=== PATIENT | female | born 1995 | race Caucasian/White ===

== ENCOUNTER 2018-10-24 07:58 | Emergency (ER) | payer OTHER ==
[~2018-10-24] VITALS: Ht 167.6 cm; Wt 50.3 kg
[2018-10-24 09:04] LABS: BILIRUBIN,URINE NEGATIVE (NEGATIVE); CLARITY,URINE CLEAR; COLOR,URINE YELLOW; GLUCOSE, URINE (UA) NEGATIVE (NEGATIVE); KETONES,URINE NEGATIVE (NEGATIVE); LEUKOCYTE ESTERASE ,URINE 1+ (NEGATIVE); NITRITE,URINE NEGATIVE (NEGATIVE); PH,URINE 7 (5-9); PROTEIN,URINE 2+ (NEGATIVE); UROBILINOGEN,URINE 4 MG/DL (NORMAL)
[2018-10-24 09:12] LABS: BACTERIA,URINE FEW /HPF
[2018-10-24 09:23] LABS: BASOPHILS % (AUTO) 0 % (0-10); EOSINOPHILS # (AUTO) 0.3 10^3/uL (0.0-0.3); EOSINOPHILS % (AUTO) 3 % (0-10); HEMATOCRIT 38 % (35-52); LYMPHOCYTES # (AUTO) 3.2 X 10^3 (1.0-4.0); LYMPHOCYTES % (AUTO) 32 % (12-44); MEAN CORPUSCULAR HEMOGLOBIN 30 PG (25-34); MEAN CORPUSCULAR HGB CONC 34 G/DL (32-36); MEAN CORPUSCULAR VOLUME 89 FL (80-99); MEAN PLATELET VOLUME 10.5 FL (7.4-10.4); MONOCYTES % (AUTO) 10 % (0-12); NEUTROPHILS # (AUTO) 5.6 X 10^3 (1.8-7.8); NEUTROPHILS % (AUTO) 55 % (42-75); PLATELET COUNT 245 10^3/uL (130-400); WHITE BLOOD COUNT 10.1 10^3/uL (4.3-11.0)
[2018-10-24] MEDS ORDERED: LIDOCAINE 2% VISCOUS 15 ML UDC PO ONE (09:30)
[2018-10-24] MEDS ORDERED: ANTACID SUSP 30 ML UDC (MYLANTA) PO ONE (09:30)
[2018-10-24] MEDS ORDERED: ONDANSETRON 4 MG/2 ML (SDV) Z0FRAN IVP ONE (09:30)
[2018-10-24] MEDS ORDERED: FAMOTIDINE 20MG/2ML IV (PEPCID) IVP ONE (09:30)
[2018-10-24 09:38] LABS: ALANINE AMINOTRANSFERASE 16 U/L (0-55); ALBUMIN 4.4 GM/DL (3.2-4.5); ALKALINE PHOSPHATASE 67 U/L (40-136); BILIRUBIN,TOTAL 0.4 MG/DL (0.1-1.0); BUN/CREATININE RATIO 11; CARBON DIOXIDE 25 MMOL/L (21-32); CHLORIDE 107 MMOL/L (98-107); CREATININE SERUM 0.76 MG/DL (0.60-1.30); GFR ESTIMATED > 60; GLUCOSE 91 MG/DL (70-105); LIPASE 75 U/L (8-78); POTASSIUM 3.6 MMOL/L (3.6-5.0); SODIUM 140 MMOL/L (135-145); TOTAL PROTEIN 7.2 GM/DL (6.4-8.2)
--- NOTE | 2018-10-24 10:19 | NUR ---
Dr. Jacobs notified that pt is still in pain at this time.
--- NOTE | 2018-10-24 10:19 | NUR ---
Pt reports nausea has resolved, however pain is still rated at 8/10.
--- NOTE | 2018-10-24 10:52 | ED Abdominal Pain ---
General Chief Complaint: Abdominal/GI Problems Stated Complaint: ABD PAIN Nursing Triage Note: Pt c/o abdominal pain/cramping, nausea, lightheadedness that began yesterday. Pt reports fever but didn't take temperature. Pt guarding and tearful during assessment. Sepsis Screen: No Definite Risk Source of Information: Patient Exam Limitations: No Limitations History of Present Illness Date Seen by Provider: Oct 24, 2018 Time Seen by Provider: 08:33 Initial Comments This 22-year-old young lady presents to the emergency room with complaints of extreme upper abdominal pain since yesterday. She has associated nausea without vomiting. She has lost her appetite. She denies any constipation or diarrhea. She has had hot flashes but is afebrile. She denies any urine or vaginal symptoms. She is currently on her menstrual period. She took ibuprofen yesterday. She sees [facility] for her primary care. Allergies and Home Medications Allergies Uncoded Allergies: ARTIFICIAL GRAPE FLAVOR (Allergy, Unknown, 10/24/18) Home Medications Hydrocodone Bit/Acetaminophen 1 Tab Tab, 1 EACH PO Q4-6HR PRN for PAIN-MODERATE Prescribed by: CHRISTEL JIMENEZ on 10/24/18 1120 Omeprazole 20 Mg Capsule.dr, 20 MG PO BID Prescribed by: CHRISTEL JIMENEZ on 10/24/18 1120 Ondansetron 4 Mg Tab.rapdis, 4 MG PO Q4H PRN for NAUSEA/VOMITING Prescribed by: CHRISTEL JIMENEZ on 10/24/18 1120 Patient Home Medication List Home Medication List Reviewed: Yes Review of Systems Review of Systems Constitutional: no symptoms reported EENTM: No Symptoms Reported Respiratory: No Symptoms Reported Cardiovascular: No Symptoms Reported Gastrointestinal: See HPI Genitourinary: No Symptoms Reported Musculoskeletal: no symptoms reported Skin: no symptoms reported Psychiatric/Neurological: No Symptoms Reported Endocrine: No Symptoms Reported Hematologic/Lymphatic: No Symptoms Reported Past Isfwbil-Iprnir-Krpivy Hx Past Med/Social Hx: Reviewed and Corrections made Patient Social History Alcohol Use: Occasionally Uses Recreational Drug Use: Yes (marijuana) Smoking Status: Current Everyday Smoker Type Used: Electronic/Vapor 2nd Hand Smoke Exposure: Yes Recent Foreign Travel: No Contact w/Someone Who Travel: No Recent Infectious Disease Expo: No Recent Hopitalizations: No Seasonal Allergies Seasonal Allergies: No Past Medical History Surgeries: No Respiratory: No Cardiac: No Neurological: No : No Last Menstrual Period: Oct 23, 2018 Genitourinary: No Gastrointestinal: No Musculoskeletal: Yes (bilat wrist fractures) Fractures HEENT: No Cancer: No Psychosocial: Yes Anxiety, Suicide Attempts, Depression Integumentary: No Blood Disorders: No Physical Exam Vital Signs Vital Signs - First Documented 10/24/18 08:11 Temp 97.0 Pulse 83 Resp 18 B/P (MAP) 117/84 (95) Pulse Ox 97 O2 Delivery Room Air Capillary Refill : Less Than 3 Seconds Height/Weight/BMI Height: 5'6.00" Weight: 111lbs. oz. [id number]; BMI Method:Stated General Appearance: WD/WN, mild distress (tearful) HEENT: PERRL/EOMI, normal ENT inspection, pharynx normal Neck: normal inspection Respiratory: lungs clear, normal breath sounds, no respiratory distress, no accessory muscle use Cardiovascular: regular rate, rhythm, no edema, no murmur Gastrointestinal: normal bowel sounds, soft, tenderness (across the upper abdomen and most intense in the epigastrium inferior to the xiphoid) Extremities: normal inspection, no pedal edema Neurologic/Psychiatric: maltster II-XII nml as tested, no motor/sensory deficits, alert, normal mood/affect, oriented x 3 Skin: normal color, warm/dry Progress/Results/Core Measures Results/Orders Lab Results Laboratory Tests Test 10/24/18 08:13 10/24/18 08:25 Range/Units Urine Color YELLOW Urine Clarity CLEAR Urine pH 7 5-9 Urine Specific [place] 1.010 L 1.016-1.022 Urine Protein 2+ H NEGATIVE Urine Glucose (UA) NEGATIVE NEGATIVE Urine Ketones NEGATIVE NEGATIVE Urine Nitrite NEGATIVE NEGATIVE Urine Bilirubin NEGATIVE NEGATIVE Urine Urobilinogen 4 H NORMAL MG/DL Urine Leukocyte Esterase 1+ H NEGATIVE Urine RBC (Auto) 5+ H NEGATIVE Urine RBC 2-5 H /HPF Urine WBC 2-5 /HPF Urine Squamous Epithelial Cells 5-10 /HPF Urine Crystals NONE /LPF Urine Bacteria FEW H /HPF Urine Casts NONE /LPF Urine Mucus NEGATIVE /LPF Urine Culture Indicated NO White Blood Count 10.1 4.3-11.0 10^3/uL Red Blood Count 4.29 L 4.35-5.85 10^6/uL Hemoglobin 13.0 11.5-16.0 G/DL Hematocrit 38 35-52 % Mean Corpuscular Volume 89 80-99 FL Mean Corpuscular Hemoglobin 30 25-34 PG Mean Corpuscular Hemoglobin Concent 34 32-36 G/DL Red Cell Distribution Width 13.0 10.0-14.5 % Platelet Count 245 130-400 10^3/uL Mean Platelet Volume 10.5 H 7.4-10.4 FL Neutrophils (%) (Auto) 55 42-75 % Lymphocytes (%) (Auto) 32 12-44 % Monocytes (%) (Auto) 10 0-12 % Eosinophils (%) (Auto) 3 0-10 % Basophils (%) (Auto) 0 0-10 % Neutrophils # (Auto) 5.6 1.8-7.8 X 10^3 Lymphocytes # (Auto) 3.2 1.0-4.0 X 10^3 Monocytes # (Auto) 1.0 0.0-1.0 X 10^3 Eosinophils # (Auto) 0.3 0.0-0.3 10^3/uL Basophils # (Auto) 0.0 0.0-0.1 10^3/uL Sodium Level 140 135-145 MMOL/L Potassium Level 3.6 3.6-5.0 MMOL/L Chloride Level 107 98-107 MMOL/L Carbon Dioxide Level 25 21-32 MMOL/L Anion Gap 8 5-14 MMOL/L Blood Urea Nitrogen 8 7-18 MG/DL Creatinine 0.76 0.60-1.30 MG/DL Estimat Glomerular Filtration Rate > 60 BUN/Creatinine Ratio 11 Glucose Level 91 70-105 MG/DL Calcium Level 9.0 8.5-10.1 MG/DL Corrected Calcium 8.7 8.5-10.1 MG/DL Total Bilirubin 0.4 0.1-1.0 MG/DL Aspartate Amino Transf (AST/SGOT) 18 5-34 U/L Alanine Aminotransferase (ALT/SGPT) 16 0-55 U/L Alkaline Phosphatase 67 40-136 U/L Total Protein 7.2 6.4-8.2 GM/DL Albumin 4.4 3.2-4.5 GM/DL Lipase 75 8-78 U/L Serum Test, Qualitative NEGATIVE NEGATIVE My Orders Orders - CHRISTEL WRIGHT MD Ua Culture If Indicated (10/24/18 08:33) Cbc With Automated Diff (10/24/18 09:16) Comprehensive Metabolic Panel (10/24/18 09:16) Hcg,Qualitative Serum (10/24/18 09:16) Lipase (10/24/18 09:16) Ed Iv/Invasive Line Start (10/24/18 09:16) Famotidine Injection (Pepcid Injection) (10/24/18 09:30) Ondansetron Injection (Zofran Injectio (10/24/18 09:30) Lidocaine 2% Viscous 15 Ml (Xylocaine Vi (10/24/18 09:30) Antacid Suspension (Mylanta Suspension (10/24/18 09:30) Fentanyl Injection (Sublimaze Injection (10/24/18 11:15) Medications Given in ED Vital Signs/I&O 10/24/18 10/24/18 08:11 11:30 Temp 97.0 97.0 Pulse 83 62 Resp 18 18 B/P (MAP) 117/84 (95) 98/86 (90) Pulse Ox 97 97 O2 Delivery Room Air Room Air Blood Pressure Mean: 95 Progress Progress Note #1: Progress Note Patient was treated with Pepcid, Zofran, and GI cocktail. This did not improve her pain but did relieve her nausea. Have been discussing imaging options with the patient. She is trying to decide if she would like CT scan now versus u ltrasound in the morning. Progress Note #2: Progress Note Workup was unremarkable. After discussion of risks and benefits of CT scan, patient decided she did not want the CT scan. She would however like to have the ultrasound in the morning. Return cautions discussed and an ultrasound order form was provided. Departure Impression Primary Impression: Epigastric pain Additional Impression: Nausea Disposition: 01 HOME, SELF-CARE Condition: Improved Departure-Patient Inst. Decision time for Depature: 11:17 Referrals: NO,LOCAL PHYSICIAN (PCP/Family) Primary Care Physician Patient Instructions: Acute Abdomen (Belly Pain), Adult (DC) Add. Discharge Instructions: Start with a noncarbonated clear liquid diet. If symptoms improve, he may gradually advance her diet with small quantities of bland food as tolerated. Use Zofran (ondansetron) as prescribed for nausea and vomiting. You may use hydrocodone for moderate to severe pain. You may use Tylenol (acetaminophen) up to 650 mg every 6 hours as needed for more mild pain. Do not take NSAID medications such as ibuprofen or naproxen as this may worsen your pain. Start an antacid therapy such as omeprazole or Pepcid (famotidine) twice daily. Return to care if symptoms worsen. If you need to return to emergency room prior to 7:00 a.m. consider presenting to an ER that has 24/7 ultrasound coverage such as one of the [facility]. See your primary care provider soon as possible. If you decide to have the ultrasound performed at [facility], please bring your order form to the hospital at 7:30 a.m. tomorrow morning. Do not eat or drink for 6 hours prior to checking in. All discharge instructions reviewed with patient and/or family. Voiced understanding. Scripts Omeprazole (Omeprazole) 20 Mg Capsule.dr 20 MG PO BID, #30 CAP Prov: CHRISTEL WRIGHT MD 10/24/18 Hydrocodone Bit/Acetaminophen (Hydrocodone/Acetaminophen 5/325mg Tablet) 1 Tab Tab 1 EACH PO Q4-6HR PRN for PAIN-MODERATE MDD 10, #5 TAB Prov: CHRISTEL WRIGHT MD 10/24/18 Ondansetron (Ondansetron Odt) 4 Mg Tab.rapdis 4 MG PO Q4H PRN for NAUSEA/VOMITING, #10 TAB Prov: CHRISTEL WRIGHT MD 10/24/18 Copy Copies To 1: ANTWAN BARR MD, JOSHUA T MD Oct 24, 2018 10:52
[2018-10-24] MEDS ORDERED: fentaNYL INJECTION 100 MCG/2 ML AMP IVP ONE (11:15)
[2018-10-24] MEDS ORDERED: ACHD5005 PO (11:20)
[2018-10-24] MEDS ORDERED: OMEP20CA12 PO (11:20)
[2018-10-24] MEDS ORDERED: ONDA4TAB11 PO (11:20)
[2018-10-24 11:30] VITALS: BP 98/86
== END 2018-10-24 11:30 | disposition home or self-care (01) ==
LOC: ER 08:00
DX: R10.13 Epigastric pain (principal); R11.0 Nausea; F12.10 Cannabis abuse, uncomplicated; F32.9 Major depressive disorder, single episode, unspecified; F41.9 Anxiety disorder, unspecified; F17.290 Nicotine dependence, other tobacco product, uncomplicated
CPT/HCPCS: 36415; 80053; 81000; 83690; 84703; 85025; 96374; 96375

== ENCOUNTER → 2018-10-25 | Outpatient (CLI) | payer OTHER ==
[~2018-10-25] MED LIST: ACHD5005 PO; OMEP20CA12 PO; ONDA4TAB11 PO
--- NOTE | 2018-10-25 09:29 | Diagnostic Imaging Report ---
PROCEDURE: US Gallbladder. TECHNIQUE: Multiple real-time grayscale images were obtained over the right upper quadrant in various projections. INDICATION: Epigastric pain. Liver appears normal. Gallbladder is clear with no stones or wall thickening. The common duct is not dilated. Pancreas appears normal. Right kidney measures 10 cm length and appears normal. There is no ascites. Impression: Negative gallbladder sonogram. Dictated by: Dictated on workstation # [id number]
== END ==
LOC: RAD 07:43
PROVIDERS: ATTEND Family Medicine
DX: R10.13 Epigastric pain (principal); R11.0 Nausea
CPT/HCPCS: 76705